=== PATIENT | male | born 1980 | race Caucasian/White ===

== ENCOUNTER 2019-07-20 05:29 | Emergency (ER) | payer OTHER ==
[~2019-07-20] VITALS: Ht 182.9 cm; Wt 125.0 kg
[2019-07-20 05:30] VITALS: BP 153/90
[2019-07-20] MEDS ORDERED: naproxen 500mg tablet PO ONE (05:40)
== END 2019-07-20 06:17 | disposition home or self-care (01) ==
LOC: ER 05:30
DX: S93.491A Sprain of other ligament of right ankle, initial encounter (principal); E11.9 Type 2 diabetes mellitus without complications; Z88.1 Allergy status to other antibiotic agents; Z88.2 Allergy status to sulfonamides; W22.8XXA Striking against or struck by other objects, initial encounter; Y93.89 Activity, other specified; Y92.89 Other specified places as the place of occurrence of the external cause; Y99.8 Other external cause status
CPT/HCPCS: 29515; 73610; 99283